=== PATIENT | male | born 1990 | race American Indian/Alaskan Native ===

== ENCOUNTER 2020-06-14 03:01 | Emergency (ER) | payer OTHER ==
[2020-06-14 03:16] VITALS: BP 142/87
[2020-06-14] MEDS ORDERED: IBUPROFEN 600 MG TAB PO ONE (03:19)
[2020-06-14] MEDS ORDERED: ACETAMINOPHEN 500 MG TAB PO ONE (03:19)
[2020-06-14] MEDS ORDERED: LIDOCAINE-MPF (1%) 10 MG/1 ML VIAL 5 ML INFILTRATI ONE (03:19)
--- NOTE | 2020-06-14 03:24 | Emergency Department Report ---
Upper Extremity - HPI Chief Complaint: Laceration/Recheck/Suture Stated Complaint: RT FINGER LACERATION Upper Extremity: Right Middle Finger (finger laceration with severe pain) Occurred When: Today (1 hour ago) Mechanism: Crush (right middle finger crushed by door) Severity: severe Symptoms: Yes Pain with Movement, Yes Laceration or Abrasion (dorsal right middle finger), No Deformity, No Limited Range of Movement, No Numbness, No Weakness, No Swelling Other History: Patient is a 30-year-old -[place] male with no past medical history presents to the ED with complaint of acute onset painful bleeding distal dorsal right middle finger laceration after a metallic door at work accidentally closed on to his right middle finger causing bleeding laceration with pain. Patient states that he is up-to-date with all his tetanus vaccinations. Patient denies fall, heavy lifting, nausea, vomiting, dizziness, syncope, chest pain or shortness of breath, change in vision or loss of consciousness. ED Review of Systems ROS: Stated complaint: RT FINGER LACERATION Other details as noted in HPI Constitutional: denies: chills, fever Eyes: denies: eye pain, eye discharge, vision change ENT: denies: ear pain, throat pain Respiratory: denies: cough, shortness of breath, wheezing Cardiovascular: denies: chest pain, palpitations Endocrine: no symptoms reported Gastrointestinal: denies: abdominal pain, nausea, diarrhea Genitourinary: denies: urgency, dysuria Musculoskeletal: arthralgia (Painful distal right middle finger due to a bleeding laceration). denies: back pain, joint swelling Skin: other (Bleeding dorsal distal right middle finger laceration wound). denies: rash, lesions Neurological: denies: headache, weakness, paresthesias Psychiatric: denies: anxiety, depression Hematological/Lymphatic: denies: easy bleeding, easy bruising ED Past Medical Hx - Past Medical History Previous Medical History?: No - Surgical History Past Surgical History?: No - Social History Smoking Status: Never Smoker Substance Use Type: None - Medications Home Medications: Home Medications Medication Instructions Recorded Confirmed Last Taken Type Ibuprofen [Motrin] 800 mg PO Q8HR PRN #30 tablet 06/14/20 Unknown Rx cephALEXin [Keflex] 500 mg PO Q8HR #30 cap 06/14/20 Unknown Rx Upper Extremity Exam - Exam General: Vital signs noted. No distress. Alert and acting appropriately. Head and Torso: No HEENT Abnormality, No Neck Tenderness, No Chest/Lungs Abnormality, No Abdominal Tenderness, No Back Tenderness Shoulder Exam: Yes Normal Range of Motion in Shoulder, No Shoulder Tenderness, No Clavicle Tenderness, No Shoulder Deformity, No AC Joint Tenderness Arm Exam: No Arm/Humerus Tenderness, No Arm Deformity Elbow: Yes Normal Range of Motion in Elbow, No Elbow Tenderness, No Elbow D eformity Forearm: No Forearm Tenderness, No Forearm Deformity, No Pain with Pronation, No Pain with Supination Wrist: Yes Normal ROM in Wrist, No Wrist Tenderness, No Wrist Deformity, No Snuffbox Tenderness, No Pain with Axial Thumb Compression Hand: Yes Digit Tenderness (Distal right middle finger), Yes Normal ROM in Digit (s), No Hand Tenderness, No Hand Deformity, No Digit(s) Deformity, No Tendon Dysfunction CMS Exam: Yes Broken Skin (4 cm Laceration on distal right middle finger), Yes Normal Distal Pulses, Yes Normal Capillary Refill, Yes Normal Distal Sensation ED Course Vital Signs 06/14/20 03:09 Temperature 98.6 F Pulse Rate 49 L Respiratory 18 Rate Blood Pressure 142/87 O2 Sat by Pulse 100 Oximetry - Laceration /Wound Repair Right Distal Dorsal Finger Wound Location: upper extremity (distal dorsal right middle finger) Wound Length (cm): 4 Wound's Depth, Shape: into muscle, irregular Wound Explored: contaminated Irrigated w/ Saline (ccs): 300 Betadine Prep?: Yes Anesthesia: 1% Lidocaine Volume Anesthetic (ccs): 4 Wound Debrided: extensive Wound Repaired With: sutures Suture Size/Type: 4:0, proline Number of Sutures: 10 Layer Closure?: No Sterile Dressing Applied?: No Progress: Patient tolerated the procedure well. The wound was then dressed appropriately after suturing and patient discharged home on pain medication and prophylactic antibiotics. Patient was discharged home and advised to follow-up with his primary care physician in 7 to 10 days for reevaluation. Patient was otherwise advised return to the ED immediately if symptoms get worse, otherwise follow-up with his primary care physician or return to the ED in 12 to 14 days for suture removal. ED Medical Decision Making - Radiology Data Radiology results: report reviewed, image reviewed [facility] [address] [place] [address] XRay Report Signed Patient: KIRAN GUERRERO MR#: [id number] : 1990 Acct:[id number] Age/Sex: 30 / M ADM Date: 06/14/20 Loc: ED Attending Dr: Ordering Physician: YAKOV MCCALL Date of Service: 06/14/20 Procedure(s): XR finger(s) 2+V RT Accession Number(s): [id number] cc: YAKOV MCCALL Fluoro Time In Minutes: RIGHT FINGER(S) 3 VIEW(S) INDICATION / CLINICAL INFORMATION: Distal right middle finger injury COMPARISON: None available. FINDINGS: BONES / JOINT(S): No acute fracture or subluxation. No significant arthritis. SOFT TISSUES: Laceration to distal aspect right long finger. No radiopaque foreign body ADDITIONAL FINDINGS: None. Signer Name: Ralph Bonilla MD Signed: 06/14/2020 4:02 AM Workstation Name: [id number] Transcribed By: TL Dictated By: Ralph Bonilla MD Electronically Authenticated By: Ralph Bonilla MD Signed Date/Time: 06/14/20401 DD/ 0 TD/TT: - Medical Decision Making This is a 30-year-old -[place] male with no past medical history presents to the ED with complaint of acute onset painful bleeding distal dorsal right middle finger laceration after a metallic door at work accidentally closed on to his right middle finger causing bleeding laceration with pain. Patient states that he is up-to-date with all his tetanus vaccinations. In the ED, patient is alert and oriented x3 and is not in any distress. Patient however appears to be in significant pain. Patient was treated for pain in the ED and right middle finger x-ray showed no acute fractures or subluxations or presence of any foreign bodies. The distal dorsal right middle finger bleeding laceration was cleaned thoroughly and local anesthetic lidocaine 1% solution was used to infiltrate the area for local anesthesia. When anesthesia was fully achieved, the finger laceration was cleaned with Betadine solution and sutured per protocol. Patient tolerated the procedure well. Neosporin ointment was applied to the wound and the wound was then dressed appropriately. Patient was then discharged home on pain medications and prophylactic antibiotics. Patient was advised to follow-up with his primary care physician in 7 to 10 days for reevaluation. Patient was advised return to the ED immediately if symptoms get worse, otherwise return to the ED or to his primary care physician in 12 to 14 days for suture removal. - Differential Diagnosis laceration; finger fracture; abrasion; puncture wound; contusion finger Critical care attestation.: If time is entered above; I have spent that time in minutes in the direct care of this critically ill patient, excluding procedure time. ED Disposition Clinical Impression: Contusion of right middle finger without damage to nail, initial encounter Laceration of right middle finger w/o foreign body w/o damage to nail Qualifiers: Encounter type: initial encounter Qualified Code(s): S61.212A - Laceration without foreign body of right middle finger without damage to nail, initial encounter Disposition: TO HOME OR SELFCARE Is pt being admited?: No Does the pt Need Aspirin: No Condition: Stable Instructions: Contusion, [id number], Laceration Care, Adult, [id number], Sutured Wound Care, [id number] Additional Instructions: The right middle finger x-ray showed no acute fractures or subluxations or presence of any foreign bodies. Therefore take medications with food, drink plenty of fluids and follow-up with your primary care physician in 7 to 10 days for reevaluation. Return to the ED immediately if symptoms get worse. Ot lila return to the ED or to your primary care physician in 12 to 14 days for suture removal. Prescriptions: cephALEXin [Keflex] 500 mg PO Q8HR #30 cap Ibuprofen [Motrin] 800 mg PO Q8HR PRN #30 tablet PRN Reason: Pain , Severe (7-10) Referrals: [facility] [Provider Group] - 7-10 days Forms: Work/School Release Form(ED) Time of Disposition: 03:27 Print Language: AZERI
--- NOTE | 2020-06-14 04:06 | XRay Report ---
RIGHT FINGER(S) 3 VIEW(S) INDICATION / CLINICAL INFORMATION: Distal right middle finger injury COMPARISON: None available. FINDINGS: BONES / JOINT(S): No acute fracture or subluxation. No significant arthritis. SOFT TISSUES: Laceration to distal aspect right long finger. No radiopaque foreign body ADDITIONAL FINDINGS: None. Signer Name: Ralph Bonilla MD Signed: 06/14/2020 4:02 AM Workstation Name: [id number]
[2020-06-14] MEDS ORDERED: NEOMY 3.5 MG/BACIT 400 UNITS/POLY B 5000 UNITS/GM OINT PACKET TP ONE (04:54)
== END 2020-06-14 05:30 | disposition home or self-care (01) ==
LOC: ED 03:01
DX: S61.212A Laceration without foreign body of right middle finger without damage to nail, initial encounter (principal); Z79.1 Long term (current) use of non-steroidal anti-inflammatories (NSAID); Z79.899 Other long term (current) drug therapy; X58.XXXA Exposure to other specified factors, initial encounter; Y93.89 Activity, other specified; Y92.89 Other specified places as the place of occurrence of the external cause; Y99.8 Other external cause status
CPT/HCPCS: 12042; 73140; 99283; A6250